=== PATIENT | male | born 1995 | race Caucasian/White ===

== ENCOUNTER → 2021-07-27 15:13 | Outpatient (BNVA) | payer SELFPAY | PROVIDERS: Visit Provider Family Medicine | DX: Z76.89 Persons encountering health services in other specified circumstances (principal); K92.1 Melena | CPT/HCPCS: 80053; 84443; 85025; 85651; 86140 ==

== ENCOUNTER 2021-09-05 13:05 | Emergency (ER) | payer SELFPAY ==
[2021-09-05 13:15] VITALS: BP 114/72; PULSE 76; RESP 14; TEMP 36.8; O2SAT 99; BMI 17.9
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
[2021-09-05] MEDS: tetanus-dipt-pertussis 0.5 mL SDV IM (13:39)
== END 2021-09-05 13:41 | disposition home or self-care (01) ==
PROVIDERS: Emergency Provider Physician Assistant; PCP Family Medicine
DX: S61.551A Open bite of right wrist, initial encounter (principal); W55.01XA Bitten by cat, initial encounter; Z23 Encounter for immunization
CPT/HCPCS: 90471; 90715; 99283